=== PATIENT | male | born 1985 | race Caucasian/White ===

== ENCOUNTER → 2018-05-04 14:27 | Outpatient (CLI) | payer BC, SELFPAY ==
--- NOTE | 2018-05-04 14:35 | XR_ITS ---
XR chest 2V HISTORY: ITS.REASON: CHILLS, COUGH, FEVER ORDERING PHYSICIAN: Sera Yancey PATIENT AGE: 32 years COMPARISON: None FINDINGS: Unremarkable cardiovascular structures. The left hilum is somewhat prominent inferiorly nonspecific and may only be vascular. Follow-up suggested as adenopathy cannot be excluded. The lungs are clear bilaterally. No acute bony anomalies. IMPRESSION: 1. No acute finding. 2. Mild prominence of the left hilum. Possible adenopathy. Suggest 4-6 week follow-up to confirm stability
[2018-05-04 14:44] LABS: Basophils # 0.1 K/mm3 (0-0.2); Basophils % 0.5 % (0.1-2.0); Eosinophils # 0.2 K/mm3 (0.0-0.4); Eosinophils % 2.4 % (0.1-12.0); Hematocrit 47.3 % (42.0-52.0); Hemoglobin 16.2 g/dL (14.1-18.0); Lymphocytes # 1.8 K/mm3 (0.7-4.5); Mean Corpuscular HGB Conc 34.1 g/dL (31.8-35.4); Mean Corpuscular Hemoglobin 27.8 pg (27.0-31.2); Mean Corpuscular Volume 81.4 fl (80-94); Mean Platelet Volume 7.1 fl (7.4-10.4); Monocytes # 0.5 K/mm3 (0.1-1.0); Monocytes % 6.3 % (1.7-9.3); Neutrophils # 5.9 K/mm3 (1.8-7.8); Neutrophils % 69.8 % (37.0-80.0); Platelet Count 266 K/mm3 (142-424); Red Blood Count 5.82 M/mm3 (4.60-6.20); Red Cell Distribution Width 12.5 % (11.5-17.5); White Blood Count 8.5 K/mm3 (4.8-10.8)
[2018-05-04 14:51] LABS: Alanine Aminotransferase 44 U/L (12-78); Alkaline Phosphatase 113 U/L (46-116); Anion Gap 12.5 mEq/L (5-15); Aspartate Amino Transferase 22 U/L (15-37); Bilirubin,Total 0.6 mg/dL (0.2-1.0); Blood Urea Nitrogen 13 mg/dL (7-18); Carbon Dioxide 30 mmol/L (21.0-32.0); Chloride 104 mmol/L (98-107); Creatinine,Serum 1.38 mg/dL (0.70-1.30); Estimated Glomerular Filt Rate 59 ml/min (>60); GFR (African American) 72 ML/MIN (>60); Globulin 4.2 gm/dl (1.3-3.2); Glucose 107 mg/dL (74-106); Potassium 4.5 mmoL/L (3.5-5.1); Sodium 142 mmol/L (136-145); Total Protein,Serum 8.2 gm/dL (6.4-8.2)
[2018-05-04 15:52] LABS: Adenovirus,PCR Not Detected (NotDetected); Bordetella Pertussis Not Detected (NotDetected); Chlamydophila Pneumoniae, PCR Not Detected (NotDetected); Coronavirus 229E Not Detected (NotDetected); Coronavirus NL63 Not Detected (NotDetected); Coronavirus OC43 Not Detected (NotDetected); Coronovirus HKU1,PCR Not Detected (NotDetected); Human Metapneumovirus Not Detected (NotDetected); Influenza A, PCR Not Detected (NotDetected); Influenza AH1, 2009 Not Detected (NotDetected); Influenza AH1, PCR Not Detected (NotDetected); Influenza AH3,PCR Not Detected (NotDetected); Influenza B, PCR Not Detected (NotDetected); Mycoplasma Pneumoniae, PCR Not Detected (NotDected); Parainfluenza 1, PCR Not Detected (NotDetected); Parainfluenza 2, PCR Not Detected (NotDetected); Parainfluenza 3, PCR Not Detected (NotDetected); Parainfluenza 4, PCR Not Detected (NotDetected); Respiratory Syncytial Virus Not Detected (NotDetected); Rhinovirus/Enterovirus Not Detected (NotDetected)
== END ==
PROVIDERS: Visit Provider Nurse Practitioner Family
DX: R50.9 Fever, unspecified (principal); R05 Cough; R10.30 Lower abdominal pain, unspecified
CPT/HCPCS: 36415; 71046; 80053; 85025; 87486; 87581; 87633; 87798

== ENCOUNTER → 2018-05-08 11:35 | Outpatient (CLI) | payer BC, SELFPAY ==
[2018-05-08 12:44] LABS: Anion Gap 13.8 mEq/L (5-15); Blood Urea Nitrogen 15 mg/dL (7-18); Calcium 9.5 mg/dL (8.5-10.1); Carbon Dioxide 29 mmol/L (21.0-32.0); Chloride 103 mmol/L (98-107); Creatinine,Serum 1.28 mg/dL (0.70-1.30); Estimated Glomerular Filt Rate 65 ml/min (>60); GFR (African American) 78 ML/MIN (>60); Glucose 177 mg/dL (74-106); Potassium 4.8 mmoL/L (3.5-5.1); Sodium 141 mmol/L (136-145)
== END ==
PROVIDERS: Visit Provider Nurse Practitioner Family
DX: J18.1 Lobar pneumonia, unspecified organism (principal); E86.0 Dehydration; N17.9 Acute kidney failure, unspecified
CPT/HCPCS: 36415; 80048

== ENCOUNTER → 2018-06-05 13:56 | Outpatient (POV) | payer BC, SELFPAY | PROVIDERS: Family Provider Family Medicine; PCP Internal Medicine; Visit Provider Physician Assistant | DX: Z00.00 Encounter for general adult medical examination without abnormal findings (principal) ==

== ENCOUNTER → 2021-06-19 13:52 | Outpatient (CLI) | payer BC, OTHER, SELFPAY | PROVIDERS: PCP Family Medicine; Visit Provider Nurse Practitioner | DX: Z20.822 Contact with and (suspected) exposure to COVID-19 (principal); U07.1 COVID-19 | CPT/HCPCS: C9803; U0003; U0005 ==

== ENCOUNTER → 2023-09-01 10:27 | Outpatient (CLI) | payer BC, OTHER, SELFPAY ==
--- NOTE | 2023-09-01 10:31 | XR_ITS ---
FINAL REPORT CLINICAL HISTORY: pain FINDINGS: Left elbow Three views were obtained. There is no acute fracture or dislocation. The joint spaces appear normal. There is a tiny osteophyte along the posterior olecranon. No soft tissue abnormality is identified. IMPRESSION: No acute process. Reviewed, Interpreted and Dictated by Ishan Smith MD Transcribed by Sanjana Neely Authenticated and . [facility]
--- NOTE | 2023-09-01 10:31 | XR_ITS ---
FINAL REPORT CLINICAL HISTORY: pain FINDINGS: Left humerus Three views were obtained. There is no acute fracture or dislocation. The joint spaces appear normal. No soft tissue abnormality is identified. IMPRESSION: No acute process. Reviewed, Interpreted and Dictated by Ishan Smith MD Transcribed by Sanjana Neely Authenticated and [facility]
== END ==
PROVIDERS: Visit Provider Orthopaedic Surgery
DX: M25.522 Pain in left elbow (principal); M79.622 Pain in left upper arm
CPT/HCPCS: 73060; 73080

== ENCOUNTER 2024-04-12 18:11 | Emergency (ER) | payer BC, OTHER, SELFPAY ==
[2024-04-12 18:30] VITALS: BP 114/61; PULSE 85; RESP 16; TEMP 37.8; O2SAT 96; BMI 26.4
--- NOTE | 2024-04-12 18:41 | ED_ITS ---
Discharge Plan Disposition Patient Disposition: Home, Self-Care Condition: Good Prescriptions Prescriptions: New azithromycin [Zithromax Z-Clive] 250 mg tablet See Rx Instructions .ROUTE .COMPLEX 5 Days Qty: 6 0RF Rx Instructions: For 250 mg dose pack: take 500 mg today (day 1), then 250 mg for 4 days (days 2-5) mwpbqvybndmeknd-rqufhwsbx-WO [Bromfed DM] 2-30-10 mg/5 mL syrup 10 ml PO Q6H PRN (Reason: cold symptoms) Qty: 200 0RF No Action fluoxetine [Prozac] 20 mg capsule 20 mg PO DAILY Qty: 90 0RF Referrals Follow up/Referrals: Provider,Referral, MD [Primary Care Provider] - See instructions Activity Restrictions/Add. Instructions Additional Instructions/Restrictions: *Monitor Temp, Over the counter Motrin or Tylenol as directed/as needed Tylenol every 4 hours and Motrin every 6 hours (as long as your family doctor has told you that you can take it) for fever or pain. and straight to ER if unable to lower temp less than 101.0 after medication given *Warm fluids like tea with honey may help to soothe the throat and help with nasal congestion??? *Sleep elevated *Humidifier/Vaporizer Bromfed may cause drowsiness. Know how it effects you (your child) before driving, caring for small child, or sending your child to school. Not other antihistamines/allergy medications while taking bromfed Your throat swab was sent for culture. Those results are typically sent to your primary care. Be sure to follow up in 2-3 days with your family doctor/primary care physician if no improvement so they can review those result and treat if necessary. If you don?t have a primary care doctor, I recommend you get one but in the mean time, you will have to return to a walk in clinic Follow up IMMEDIATELY for new or worsening symptoms or no Noticeable improvement over the next 48-72 hours. 911 for difficulty breathing or swallowing Clinical Impressions Clinical Impression: Pharyngitis Stand Alone Forms Stand Alone Forms: Work/School Release Instructions Patient Instructions: DI for Fever (Symptom) -- Adult, DI for Headache Print Language Print Language: Greek Discharge ED Provider: Karyn Justin [facility] [place] HPI General Stated complaint: Fever,body aches,ANDERSEN Mode of Arrival: Ambulatory Source of Information: Patient Limitations: No Limitations Time Seen by Provider: 04/12/24 18:41 Description of Symptoms (Recalled from Triage Doc. by RN): Patient complaint of fever, headache and body aches since yesterday. HEENT Symptoms (Recalled from RN notes): Yes Resp Symptoms (Recalled from RN notes): No Skin Symptoms (Recalled from RN notes): No MS Symptoms (Recalled from RN notes): No Functional Status (Recalled from RN notes): wnl History of Present Illness Provider Complaint: Patient states that he started feeling bad yesterday with fever, chills, body aches, headache and fatigue States he thought he would feel better today but isnt and still having fever so he came in worried that he may have the flu or something denies known sick contacts Related Data Previous Rx's ?Medication ?Instructions ?Recorded fluoxetine 20 mg capsule (Prozac) 20 mg PO DAILY #90 caps 06/15/22 azithromycin 250 mg tablet See Rx Instructions PO .COMPLEX 5 04/12/24 (Zithromax Z-Clive) days #6 tabs hotutmhyludcctn-yjgabxtycqcwhbm-BW 10 ml PO Q6H PRN cold symptoms 04/12/24 2 mg-30 mg-10 mg/5 mL oral syrup #200 mL (Bromfed DM) Allergies Allergy/AdvReac Type Severity Reaction Status Date / Time No Known Allergies Allergy Verified 02/21/24 14:45 Worker's Comp Is this a Worker's Comp case?: No PFSH PFSH Disclaimer: The information contained in this section may have been updated after the patient was seen, as this information can be updated by other users. Medical History Major depressive disorder Generalized anxiety disorder Social History Smoking Status: Never smoker alcohol intake: never substance use type: denies use current occupational status: employed Travel in the last 8 weeks: Inside the [place] household members: spouse and children housing: house number of children: 3 ROS Obtained: Yes All systems reviewed & no additional complaints except as documented and Yes Systems reviewed as appropriate & no additional complaints except as documented Constitutional Constitutional: Reports system reviewed and no additional complaints, except as documented, Reports as per HPI, Reports body ache, Reports chills, Reports fatigue, Reports fever(s), Reports headache(s) and Reports poor appetite ENT Ears, Nose, Mouth, and Throat: Reports system reviewed and no additional complaints, except as documented, Reports as per HPI, Reports headache(s) and Reports nasal congestion Cardiovascular Cardiovascular: Reports system reviewed and no additional complaints, except as documented and Reports as per HPI Respiratory Respiratory: Reports system reviewed and no additional complaints, except as documented and Reports as per HPI Gastrointestinal Gastrointestingal: Reports system reviewed and no additional complaints, except as documented and as per HPI; Denies abdominal pain, diarrhea, nausea or vomiting Neurologic Neurologic: Reports headache(s) Endocrine Endocrine: Reports fatigue Physical Exam General General appearance: alert and in no apparent distress ENT ENT exam: Present mucous membranes moist Expanded ENT Exam Nose exam: Present other (clear drainage noted) Throat exam: Present tonsillar erythema (PND noted) Respiratory Respiratory exam: Present normal lung sounds bilaterally; Absent respiratory distress or wheezes Cardiovascular Cardiovascular exam: Present regular rate, normal rhythm and normal heart sounds Neurological Exam Neurological exam: Present alert, oriented X3 and normal gait Medical Decision Making Miko Inquiry Pt receiving controlled substance: No Miko was queried for this patient: No Vital Signs: 04/12/24 18:30 Temperature 100.1 F H Temperature Source Oral Pulse Rate [Radial] 85 Respiratory Rate 16 Blood Pressure [Right Arm] 114/61 Blood Pressure Mean [Right Arm] 78 Blood Pressure Source [Right Arm] Automatic Cuff Blood Pressure Position [Right Arm] Sitting 02 Sat by Pulse Oximetry 96 Oxygen Delivery Method Room Air Lab Data Lab results reviewed: Yes I reviewed the patient's lab results. Medical Decision Narrative: Discussed COVID testing and patient declined at this time
[2024-04-12 18:49] LABS: UTC Influenza A Antigen Negative (Negative)
[2024-04-12 18:50] LABS: UTC Influenza B Antigen Negative (Negative)
[2024-04-12 19:13] VITALS: BP 114/61; PULSE 85; RESP 16; TEMP 37.8; O2SAT 96
== END 2024-04-12 19:13 | disposition home or self-care (01) ==
PROVIDERS: Emergency Provider Nurse Practitioner
DX: J02.9 Acute pharyngitis, unspecified (principal); R50.9 Fever, unspecified; R51.9 Headache, unspecified
CPT/HCPCS: 87804; 99204; 99212; 99214; G0463

== ENCOUNTER 2024-04-18 15:51 | Emergency (ER) | payer BC, OTHER, SELFPAY ==
--- NOTE | 2024-04-18 15:59 | EXP.UTC ---
Discharge Plan Disposition Patient Disposition: Home, Self-Care Condition: Good Referrals Follow up/Referrals: Provider,Referral, MD [Primary Care Provider] - See instructions Activity Restrictions/Add. Instructions Additional Instructions/Restrictions: Drink plenty of fluids. Take tylenol or ibuprofen for pain or fever. Follow up with your regular doctor. GO TO THE ER FOR ANY WORSENING SYMPTOMS Clinical Impressions Clinical Impression: Acute viral syndrome Stand Alone Forms Stand Alone Forms: Work/School Release Instructions Patient Instructions: DI for Viral Syndrome Print Language Print Language: Kinyarwanda Discharge ED Provider: Reji Aguilera [facility] [place] H[place] General Stated complaint: weakness no energy Time Seen by Provider: 04/18/24 15:59 Related Data Allergies Allergy/AdvReac Type Severity Reaction Status Date / Time No Known Allergies Allergy Verified 02/21/24 14:45 [facility] Disclaimer: The information contained in this section may have been updated after the patient was seen, as this information can be updated by other users. Medical History Major depressive disorder Generalized anxiety disorder Social History Smoking Status: Never smoker alcohol intake: never substance use type: denies use current occupational status: employed Travel in the last 8 weeks: [place] the [place] household members: spouse and children housing: house number of children: 3 ROS Obtained: Yes All systems reviewed & no additional complaints except as documented Constitutional Constitutional: Reports chills and Reports fever(s) Eyes Eyes: Denies eye discharge ENT Ears, Nose, Mouth, and Throat: Reports as per HPI Cardiovascular Cardiovascular: Denies chest pain Respiratory Respiratory: Denies chest congestion and Reports cough Gastrointestinal Gastrointestingal: Reports nausea; Denies abdominal pain, constipation, cramping, diarrhea or vomiting Musculoskeletal Musculoskeletal: Denies arthralgias Integumentary/Breasts Skin/Breast: Denies rash Neurologic Neurologic: Denies paresthesias Physical Exam General General appearance: alert and in no apparent distress Eye Eye exam: Present normal appearance, PERRL and EOMI ENT ENT exam: Present mucous membranes moist and normal external ear exam Expanded ENT Exam External ear exam: Present normal external inspection TM/Canal exam: Bilateral TM: erythema and bulging Nose exam: Absent sinus tenderness Nasal speculum exam: Bilateral: normal Mouth exam: Present normal external inspection; Absent drooling Teeth exam: Present normal inspection Throat exam: Present tonsillar erythema and tonsillomegaly Neck Neck exam: Present normal inspection, full ROM and trachea midline; Absent tenderness, lymphadenopathy or thyromegaly Chest Chest inspection: Present normal inspection and symmetric chest wall rise; Absent tenderness or rash Respiratory Respiratory exam: Present normal lung sounds bilaterally; Absent respiratory distress, wheezes, stridor or accessory muscle use Cardiovascular Cardiovascular exam: Present regular rate, normal rhythm and normal heart sounds Abdominal Exam Abdominal exam: Present soft; Absent distention, tenderness, guarding, rebound or rigidity Extremities Exam Extremities exam: Present normal inspection, full ROM and normal capillary refill; Absent tenderness or calf tenderness Back Exam Back exam: Present normal inspection and full ROM; Absent tenderness Neurological Exam Neurological exam: Present alert and oriented X3 Psychiatric Psychiatric exam: Present normal affect and normal mood Skin Skin exam: Present warm, dry, intact and normal color Lymphatic Lymphatic Findings: no adenopathy Medical Decision Making Medical Records Medical records reviewed: No I reviewed the patient's medical records. Miko Long Pt receiving controlled substance: No Lab Data Lab results reviewed: Yes I reviewed the patient's lab results.
[2024-04-18 16:15] VITALS: BP 116/71; PULSE 59; RESP 18; TEMP 36.9; O2SAT 99; BMI 26.2
[2024-04-18] MEDS: DEXAMETHASONE 4MG/ML 1ML VIAL 8 MG IM (16:26)
[2024-04-18 16:30] VITALS: BP 116/71; PULSE 59; RESP 18; TEMP 36.9; O2SAT 99
== END 2024-04-18 16:33 | disposition home or self-care (01) ==
PROVIDERS: Emergency Provider Nurse Practitioner Family
DX: R53.1 Weakness (principal); R53.83 Other fatigue; B34.9 Viral infection, unspecified
CPT/HCPCS: 96372; 99212; 99214; G0463; J1100

== ENCOUNTER 2024-05-30 19:20 | Emergency (ER) | payer BC, OTHER, SELFPAY ==
--- NOTE | 2024-05-30 19:31 | XR_ITS ---
PROCEDURE INFORMATION: Exam: XR Left Foot Exam date and time: 05/30/2024 7:24 PM Age: 38 years old Clinical indication: Pain; Toes; Left TECHNIQUE: Imaging protocol: Radiologic exam of the left foot. Views: 3 or more views. COMPARISON: No relevant prior studies available. FINDINGS: Bones/joints: The osseous structures appear intact with no evidence of acute fracture, dislocation, or malalignment. Joint spaces are preserved. No abnormal bone density or destructive lesions are noted. Soft tissues: Soft tissues appear unremarkable. IMPRESSION: At the time of imaging, there is no evidence for acute osseous abnormalities.
[2024-05-30 19:35] VITALS: BP 114/69; PULSE 69; RESP 20; TEMP 36.6; O2SAT 98; BMI 25.7
--- NOTE | 2024-05-30 19:37 | EXP.UTC ---
Discharge Plan Disposition Patient Disposition: Home, Self-Care Condition: Good Prescriptions Prescriptions: New ibuprofen [IBU] 800 mg tablet 800 mg PO Q8HP PRN (Reason: Moderate Pain) Qty: 30 0RF Referrals Follow up/Referrals: Provider,Referral, [Primary Care Provider] - See instructions Yokasta Mcdonald DPM [Staff Physician] - See instructions Activity Restrictions/Add. Instructions Additional Instructions/Restrictions: Rest the extremity, Elevate the extremity as tolerated while you are resting. Take ibuprofen for pain. I sent in a prescription to your pharmacy. Follow up with Dr. Mcdonald (podiatry). I put in a referral but you need to call her office and schedule an appointment. Follow up with your regular doctor. GO TO THE ER FOR ANY WORSENING SYMPTOMS Clinical Impressions Clinical Impression: Sprain of fifth toe of left foot Stand Alone Forms Stand Alone Forms: Work/School Release Instructions Patient Instructions: DI for Toe Sprain, How to Herbert Tape Print Language Print Language: Israeli Discharge ED Provider: Reji Aguilera [facility] General Stated complaint: AO05/30 LT little toe inj Time Seen by Provider: 05/30/24 19:33 Related Data Previous Rx's ?Medication ?Instructions ?Recorded ibuprofen 800 mg tablet (IBU) 800 mg PO Q8HP PRN Moderate Pain 05/30/24 #30 tabs Allergies Allergy/AdvReac Type Severity Reaction Status Date / Time No Known Allergies Allergy Verified 02/21/24 14:45 [facility] Disclaimer: The information contained in this section may have been updated after the patient was seen, as this information can be updated by other users. Medical History (Updated 05/30/24 @ 20:12 by Reji Aguilera APRN) History of arthroplasty of finger Major depressive disorder Generalized anxiety disorder Social History Smoking Status: Never smoker alcohol intake: never substance use type: denies use current occupational status: employed Travel in the last 8 weeks: [place] the [place] household members: spouse and children housing: house number of children: 3 ROS Obtained: Yes All systems reviewed & no additional complaints except as documented Constitutional Constitutional: Denies chills and Denies fever(s) Eyes Eyes: Denies eye discharge ENT Ears, Nose, Mouth, and Throat: Denies dizziness, Denies otalgia and Denies sore throat Cardiovascular Cardiovascular: Denies chest pain Respiratory Respiratory: Denies shortness of breath, Denies chest congestion, Denies cough, Denies stridor and Denies wheezing Gastrointestinal Gastrointestingal: Denies nausea or vomiting Musculoskeletal Musculoskeletal: Reports system reviewed and no additional complaints, except as documented and Denies arthralgias Integumentary/Breasts Skin/Breast: Denies rash Neurologic Neurologic: Denies dizziness and Denies paresthesias Allergic/Immunologic Allergic/Immunologic: Denies wheezing Physical Exam General General appearance: alert and in no apparent distress Head Head exam: atraumatic, normocephalic and normal inspection Eye Eye exam: Present normal appearance, PERRL and EOMI ENT ENT exam: Present normal exam, normal oropharynx, mucous membranes moist, TM's normal bilaterally and normal external ear exam Neck Neck exam: Present normal inspection, full ROM and trachea midline; Absent meningismus or lymphadenopathy Chest Chest inspection: Present normal inspection and symmetric chest wall rise; Absent tenderness Respiratory Respiratory exam: Present normal lung sounds bilaterally; Absent respiratory distress Cardiovascular Cardiovascular exam: Present regular rate and normal rhythm; Absent JVD Abdominal Exam Abdominal exam: Present soft and normal bowel sounds; Absent distention, tenderness or guarding Extremities Exam Extremities exam: Present normal inspection, full ROM and normal capillary refill; Absent calf tenderness Back Exam Back exam: Present normal inspection; Absent tenderness Neurological Exam Neurological exam: Present alert and oriented X3 Psychiatric Psychiatric exam: Present normal affect and normal mood Skin Skin exam: Present warm, dry, intact and normal color Lymphatic Lymphatic Findings: no adenopathy Medical Decision Making Medical Records Medical records reviewed: No I reviewed the patient's medical records. Miko Inquiry Pt receiving controlled substance: No Orders (Tests/Meds): ORDERS Category Date Time Status Foot XR left minimum 3 views [XR foot LT min 3V] Stat Exams 05/30/24 19:31 Taken
[2024-05-30 20:14] VITALS: BP 114/69; PULSE 69; RESP 20; TEMP 36.6
== END 2024-05-30 20:17 | disposition home or self-care (01) ==
PROVIDERS: Emergency Provider Nurse Practitioner Family
DX: S93.505A Unspecified sprain of left lesser toe(s), initial encounter (principal); X58.XXXA Exposure to other specified factors, initial encounter
CPT/HCPCS: 73630; 99212; 99214; G0463

== ENCOUNTER 2024-06-27 13:38 | Outpatient (CLI) | payer BC, OTHER, SELFPAY ==
--- NOTE | 2024-06-27 13:41 | XR_ITS ---
FINAL REPORT CLINICAL HISTORY: left 5th toe injury COMPARISON: 05/30/2024 FINDINGS: LEFT FOOT: Three views of the left foot were obtained. There is a fracture of the distal medial fifth proximal phalanx that extends to the proximal interphalangeal joint, which appears new when compared to the prior exam. There is no soft tissue abnormality. IMPRESSION: Fracture of the distal medial fifth proximal phalanx that extends into the PIP joint. This fracture appears new since the prior exam of 05/30/2024. Reviewed, Interpreted and Dictated by Dylan Valdez III, MD Transcribed by Donna Vickers Authenticated and [facility]
== END 2024-06-27 23:59 | disposition home or self-care (01) ==
LOC: RAD 13:39
PROVIDERS: Visit Provider Podiatrist
DX: M79.672 Pain in left foot (principal); S93.505A Unspecified sprain of left lesser toe(s), initial encounter
CPT/HCPCS: 73630

== ENCOUNTER 2024-08-13 10:17 | Outpatient (CLI) | payer BC, OTHER, SELFPAY ==
--- NOTE | 2024-08-13 10:24 | XR_ITS ---
FINAL REPORT CLINICAL HISTORY: pain FINDINGS: LEFT FOOT Three views of the left foot demonstrate no acute fracture or dislocation. The visualized joint spaces are normally aligned. The soft tissues are unremarkable. IMPRESSION: No acute bony abnormality. Reviewed, Interpreted and Dictated by Candace Carranza MD Transcribed by Marilee Naik Authenticated and [facility]
== END 2024-08-13 23:59 | disposition home or self-care (01) ==
LOC: RAD 10:18
PROVIDERS: Visit Provider Podiatrist
DX: M79.672 Pain in left foot (principal); S92.502A Displaced unspecified fracture of left lesser toe(s), initial encounter for closed fracture
CPT/HCPCS: 73630

== ENCOUNTER 2025-07-07 19:23 | Emergency (ER) | payer BC, OTHER, SELFPAY ==
[2025-07-07 19:29] VITALS: BP 159/86; PULSE 70; RESP 18; TEMP 36.8; O2SAT 100; BMI 28.5
--- NOTE | 2025-07-07 19:45 | ECG_ITS ---
APPROVED REPORT Exam: Resting ECG HR:63 bpm ECG Measurements Heart Rate 63 AXES FL 181 P 70 QRSd 106 QRS 88 QT 393 T 38 QTc 401 Conclusion SINUS RHYTHM NORMAL ECG INTERPRETATION BASED ON A DEFAULT AGE OF 39 YEARS UNCONFIRMED REPORT Electronically signed by : KIRBY EDUARDO, 07/09/2025 02:50:15
[2025-07-07 19:50] LABS: Hematocrit 44.0 % (42.0-52.0); Hemoglobin 15.0 g/dL (14.1-18.0); Immature Granulocytes % 0.8 %; Mean Corpuscular HGB Conc 34.1 g/dL (31.8-35.4); Mean Corpuscular Hemoglobin 27.9 pg (27.0-31.2); Mean Corpuscular Volume 81.9 fl (80-94); Nucleated Red Blood Cells % 0 %; Platelet Count 300 K/mm3 (142-424); Red Blood Count 5.37 M/mm3 (4.60-6.20); Red Cell Distribution Width-SD 37.5 fL; White Blood Count 8.4 K/mm3 (4.8-10.8)
[2025-07-07 20:13] LABS: Alanine Aminotransferase 29 U/L (12-78); Albumin Level 4.4 g/dl (3.5-5.0); Albumin/Globulin Ratio 1.6 (1.1-1.8); Alkaline Phosphatase 74 U/L (38-126); Anion Gap 14.8 mEq/L (5-15); Aspartate Amino Transferase 37 U/L (17-59); Bilirubin,Total 0.7 mg/dl (0.2-1.3); Blood Urea Nitrogen 23 mg/dl (9-20); Calcium 9.4 mg/dl (8.4-10.2); Carbon Dioxide 27 mmol/L (22.0-30.0); Chloride 104 mmol/L (98-107); Creatinine Clearance Estimated 116 mL/min (50-200); Creatinine,Serum 1.10 mg/dl (0.66-1.25); Estimated Glomerular Filt Rate 74 ml/min (>60); GFR (African American) 89 ML/MIN (>60); Globulin 2.7 g/dL (1.3-3.2); Glucose 101 mg/dl (74-100); Potassium 4.8 mmoL/L (3.5-5.1); Sodium 141 mmol/L (136-145); Total Protein,Serum 7.1 g/dl (6.3-8.2)
[2025-07-07 20:25] LABS: Troponin I < 0.01 ng/ml (0.00-0.034)
--- NOTE | 2025-07-07 21:59 | ED_ITS ---
Discharge Plan Disposition Patient Disposition: Home, Self-Care Condition: Good Prescriptions Prescriptions: New meclizine 25 mg tablet 25 mg PO TID PRN (Reason: dizziness) Qty: 20 0RF No Action ondansetron 8 mg tablet,disintegrating 8 mg PO Q12H PRN (Reason: nausea and vomiting) Qty: 10 0RF Stahist AD 25-60 mg tablet 1 tab PO TID Qty: 30 0RF Referrals Follow up/Referrals: Provider,Referral, MD [Primary Care Provider, Medical] - See instructions Activity Restrictions/Add. Instructions Additional Instructions/Restrictions: You are being prescribed meclizine to help with your dizziness symptoms. Take this as prescribed. Follow-up with one of the primary care physicians provided to you to establish care with a primary care doctor. If you develop any new or worsening symptoms, or if you become concerned for your health for any reason, return to the emergency department for evaluation Clinical Impressions Clinical Impression: Vertigo Stand Alone Forms Stand Alone Forms: Work/School Release Print Language Print Language: Citizen Of [place] Discharge ED Provider: Miko Brown Adult HPI General Chief complaint: Dizziness Stated complaint: dizzy,headache,nausea Time Seen by Provider: 07/07/25 21:49 Mode of Arrival: Ambulatory Source of Information: Patient Description of Symptoms (Recalled from ER Triage Doc. by RN): Pt presents with c/o dizziness that started 3 days. It was present when he woke up. Pt states he has nausea. Pt states when he becomes dizzy he gets a slight headache. History of Present Illness HPI narrative: Robert Sousa is a 40-year-old male with no significant past medical history who presents to the emergency department for complaints of dizziness. Patient states that he had a viral illness last week and was treated with steroids. He states that starting yesterday, he developed some dizziness, describing as room spinning sensation, worsened with movement. He states that he took his 's meclizine, antihistamines, nasal sprays and had relief for approximately 6 hours yesterday and is not sure what medication helped. He states that the symptoms have continued today. He denies any headache, vision changes, numbness or weakness. He has not had any fevers. Related Data Previous Rx's ?Medication ?Instructions ?Recorded chlorcyclizine-pseudoephedrine 25 1 tab PO TID #30 tab s 07/01/25 mg-60 mg tablet (Stahist AD) ondansetron 8 mg disintegrating 8 mg PO Q12H PRN nause a and 07/01/25 tablet vomiting #10 tabs meclizine 25 mg tablet 25 mg PO TID PRN dizziness # 20 tabs 07/07/25 Allergies Allergy/AdvReac Type Severity Reaction Status Date / Time No Known Allergies Allergy Verified 07/01/25 19:14 [facility] Disclaimer: The information contained in this section may have been updated after the patient was seen, as this information can be updated by other users. Medical History Influenza A URI (upper respiratory infection) Left lateral epicondylitis Acute viral syndrome Pharyngitis History of arthroplasty of finger Major depressive disorder Generalized anxiety disorder Social History Smoking Status: Never smoker alcohol intake: never substance use type: denies use current occupational status: employed Travel in the last 8 weeks?: Inside the [place] household members: spouse and children housing: house number of children: 3 Have you lived/traveled outside [place] in past 30 days?: No Contact w/someone who lives/traveled outside [place] past 30 days?: No Exposure to someone with infectious disease in past 14 days?: No Do you have a fever (greater than 100.4 F or 38 C)?: No Have you tested positive for COVID-19?: No Exposed to someone with COVID-19 in past 14 days?: No Do you have a sore throat?: No Do you have a cough?: No Do you have any weakness?: No Do you have any diarrhea?: No Are you experiencing any unusual bleeding?: No Do you have any muscle aches/pain?: No Do you have any abdominal pain?: No Are you experiencing loss of taste or smell?: No Other Medical History Have you received the Flu Vaccine for this season: No Have you received the Pneumonia Vaccine: No ROS Obtained: Yes Systems reviewed as appropriate & no additional complaints except as documented Physical Exam General General appearance: alert and in no apparent distress Head Head exam: atraumatic Eye Eye exam: Present normal appearance, PERRL and EOMI; Absent nystagmus ENT ENT exam: Present normal external ear exam Neck Neck exam: Present full ROM Chest Chest inspection: Present symmetric chest wall rise Respiratory Respiratory exam: Present normal lung sounds bilaterally; Absent respiratory distress, wheezes or stridor Cardiovascular Cardiovascular exam: Present regular rate and normal rhythm Abdominal Exam Abdominal exam: Present soft; Absent tenderness or guarding exam: Present deferred Extremities Exam Extremities exam: Present normal inspection Back Exam Back exam: Present normal inspection Neurological Exam Neurological exam: Present alert, oriented X3, CN II-XII intact and normal gait; Absent motor sensory deficit Psychiatric Psychiatric exam: Present normal affect Skin Skin exam: Present warm and dry Medical Decision Making Medical Records Screening: Per USPSTF and CDC recommendations, given the prevalence of disease in our region, it is our hospital?s policy to screen for HIV and viral Hepatitis for all patients aged 18 and over and those with ongoing risk factors. Miko Inquiry Pt receiving controlled substance: No Vital Signs: 07/07/25 19:29 07/07/25 22:09 Temperature 98.3 F 98.1 F Temperature Source Temporal Artery Scan Pulse Rate 63 Pulse Rate [Right] 70 Respiratory Rate 18 20 Blood Pressure 126/79 Blood Pressure [Right Arm] 159/86 H Blood Pressure Mean [Right Arm] 110 Blood Pressure Source [Right Arm] Automatic Cuff Blood Pressure Position [Right Arm] Sitting 02 Sat by Pulse Oximetry 100 Oxygen Delivery Method Room Air Room Air Lab Data Lab Results 07/07/25 19:39: WBC 8.4, RBC 5.37, Hgb 15.0, Hct 44.0, MCV 81.9, MCH 27.9, MCHC 34.1, RDW 12.5, Plt Count 300, MPV 9.4, Neut % (Auto) 48.7, Lymph % (Auto) 38.6, Cooper % (Auto) 8.6, Eos % (Auto) 2.7, Baso % (Auto) 0.6, Neut # (Auto) 4.1, Lymph # (Auto) 3.2, Cooper # (Auto) 0.7, Eos # (Auto) 0.2, Baso # (Auto) 0.1, Sodium 141, Potassium 4.8, Chloride 104, Carbon Dioxide 27, Anion Gap 14.8, BUN 23 H, Creatinine 1.10, Estimated Creat Clear 116, Estimated GFR 74, Est GFR ( Amer) 89, Glucose 101 H, Calcium 9.4, Total Bilirubin 0.7, AST 37, ALT 29, Alkaline Phosphatase 74, Troponin I < 0.01, Total Protein 7.1, Albumin 4.4, Globulin 2.7, Albumin/Globulin Ratio 1.6 07/07/25 19:39 07/07/25 19:39 Orders (Tests/Meds): ED MEDICATIONS Discontinued Medications Generic Name Dose Route Start Last Admin Trade Name Lian PRN Reason Stop Dose Admin Dexamethasone 10 mg 07/07/25 22:01 07/07/25 22:12 Dexamethasone 1mg/1ml Intensol 10ml Udc (Er) PO 07/07/25 22:02 10 mg ONCE ONE Administration ORDERS Category Date Time Status Complete Blood Count Auto Diff Stat Lab 07/07/25:39 Completed Comprehensive Metabolic Panel Stat Lab 07/07/25: Completed Troponin I Stat Lab 07/07/25 Completed ECG Data Tracing #1: I reviewed this ECG and interpreted as documented below: NSR. No ST elevation or depression. Normal LA interval. No QTc prolongation Medical Decision Narrative: Robert Sousa is a 40-year-old male with no significant past medical history who presents to the emergency department for complaints of dizziness. Patient states that he had a viral illness last week and was treated with steroids. He states that starting yesterday, he developed some dizziness, describing as room spinning sensation, worsened with movement. He states that he took his 's meclizine, antihistamines, nasal sprays and had relief for approximately 6 hours yesterday and is not sure what medication helped. He states that the symptoms have continued today. He denies any headache, vision changes, numbness or weakness. He has not had any fevers. On arrival, patient is hemodynamically stable, in no acute distress, breathing comfortably on room air. Afebrile. Physical exam, stated above, revealed an overall well-appearing male in no distress. Pupils are equal round reactive to light. Extraocular movements are intact. No nystagmus is appreciated. Cardiopulmonary exam is unremarkable. He is ambulating without difficulty. Cranial nerve testing is unremarkable and he has a nonfocal neurological exam Differential diagnosis includes, but is not limited to: Peripheral vertigo such as BPPV, vestibular neuritis, lab otitis, especially in the setting of recent infection. I have low concern for central etiology given patient's age, lack of risk factors, and unremarkable physical exam. CTAs of the head and neck as well as CT head were considered, however I have low concern for central etiology/stroke as a source of his symptoms I do not feel this is indicated at this time as the radiation exposure outweighs the potential benefits. Basic laboratory workup was obtained including CBC, CMP, troponin and EKG. Laboratory studies are unremarkable nonactionable. Troponin negative. EKG without evidence of ischemia with normal LA intervals and normal QTc. Given patient potentially had some relief with meclizine, will prescribe patient meclizine and will also give a dose of dexamethasone for possible inflammatory process in the setting of his recent illness. I did encourage him to follow with his primary care physician. Return precautions were given. All questions were answered. He demonstrated understanding and was in agreement with this plan. He was then discharged from the emergency department in stable condition. Critical Care Critical Care Time Critical Care Time: No
[2025-07-07 22:09] VITALS: BP 126/79; PULSE 63; RESP 20; TEMP 36.7; O2SAT 98
[2025-07-07] MEDS: DEXAMETHASONE 1MG/1ML INTENSOL 10ML UDC (ER) 10 MG PO (22:12)
== END 2025-07-07 22:17 | disposition home or self-care (01) ==
PROVIDERS: Emergency Provider Student in an Organized Health Care Education/Training Program
DX: R42 Dizziness and giddiness (principal); R11.0 Nausea
CPT/HCPCS: 80053; 84484; 85025; 93005; 99283

== ENCOUNTER 2025-07-18 09:05 | Outpatient (CLI) | payer BC, OTHER, SELFPAY ==
--- NOTE | 2025-07-18 09:15 | CT_ITS ---
FINAL REPORT TECHNIQUE: Axial CT images were performed through the head. Coronal and sagittal reformatted images were submitted. This study was performed with techniques to keep radiation doses as low as reasonably achievable (ALARA). Individualized dose reduction techniques using automated exposure control or adjustment of mA and/or kV according to the patient's size were employed. CLINICAL HISTORY: eval and treat for dizziness vertigo x 13-14 days COMPARISON: None FINDINGS: CT HEAD: The ventricles are normal in size. There is no evidence of hemorrhage. There is no mass or edema identified. There is no abnormal extra-axial fluid seen. The sinuses are well aerated. IMPRESSION: No acute intracranial process. Reviewed, Interpreted and Dictated by Ishan Smith MD Transcribed by Donna Vickers Authenticated and [facility]
== END 2025-07-18 23:59 | disposition home or self-care (01) ==
LOC: RAD 09:06
PROVIDERS: Visit Provider Nurse Practitioner
DX: R51.9 Headache, unspecified (principal); R42 Dizziness and giddiness; R11.2 Nausea with vomiting, unspecified
CPT/HCPCS: 70450